=== PATIENT | female | born 1990 | race Caucasian/White ===

== ENCOUNTER 2023-02-03 13:33 | Outpatient (CLI) | payer OTHER, SELFPAY ==
--- NOTE | 2023-02-03 13:30 | CRLHL7_ITS ---
For Patients: As a result of the Century Cures Act, medical imaging exams and procedure reports are released immediately into your electronic medical record. You may view this report before your referring provider. If you have questions, please contact your health care provider. Indication: Erythema, edema and tenderness behind the right ear. Technique: CT of the temporal bones performed without IV contrast. Comparison: None relevant available at this institution. Findings: RIGHT: The external auditory canal is patent. The tympanic membrane is not thickened. The mesotympanum is well aerated. The scutum is sharp. Ossicles are intact without evidence of erosion. The epitympanum and mastoid air cells appear clear. The inner ear structures including the cochlea, semicircular canals, vestibule and vestibular aqueduct appear unremarkable. Osseous IAC is intact. The path of the facial nerve canal is preserved. LEFT: The external auditory canal is patent. The tympanic membrane is not thickened. The mesotympanum is well aerated. The scutum is sharp. Ossicles are intact without evidence of erosion. The epitympanum and mastoid air cells appear clear. The inner ear structures including the cochlea, semicircular canals, vestibule and vestibular aqueduct appear unremarkable. Osseous IAC is intact. The path of the facial nerve canal is preserved. OTHER: The visualized portions of the brain, orbits and upper soft tissue neck are grossly negative. Impression: Unremarkable CT of the temporal bones. The mastoid air cells are clear. Please note that all CT scans at this facility use dose modulation, iterative reconstruction, and/or weight-based dosing when appropriate to reduce radiation dose to as low as reasonably achievable. Dictated by Jacob La MD @ 02/03/2023 2:48:59 PM (Electronically Signed)
== END 2023-02-03 13:34 | disposition home or self-care (01) ==
LOC: CT 13:34
PROVIDERS: PCP Family Medicine; Visit Provider Student in an Organized Health Care Education/Training Program
DX: H92.09 Otalgia, unspecified ear (principal)
CPT/HCPCS: 70480

== ENCOUNTER 2023-08-30 08:16 | Outpatient (CLI) | payer OTHER, SELFPAY | END 2023-08-30 08:17 | disposition home or self-care (01) | LOC: NFLDREF 08-31 19:00 | PROVIDERS: PCP Family Medicine; Referring Provider Family Medicine; Visit Provider Family Medicine | DX: Z13.1 Encounter for screening for diabetes mellitus (principal); Z13.6 Encounter for screening for cardiovascular disorders; Z13.220 Encounter for screening for lipoid disorders | CPT/HCPCS: 80061; 82947 ==

== ENCOUNTER 2024-04-02 15:38 | Outpatient (CLI) | payer OTHER, SELFPAY | END 2024-04-02 15:39 | disposition home or self-care (01) | LOC: NFLDREF 04-17 20:21 | PROVIDERS: PCP Family Medicine; Referring Provider Family Medicine; Visit Provider Family Medicine | DX: N39.0 Urinary tract infection, site not specified (principal); B96.20 Unspecified Escherichia coli [E. coli] as the cause of diseases classified elsewhere | CPT/HCPCS: 87086; 87186 ==

== ENCOUNTER 2024-10-09 08:42 | Day surgery (SDC) | payer OTHER, SELFPAY ==
[2024-10-09] VITALS (12 sets, daily range): BP systolic 88–120; BP diastolic 52–72; PULSE 51–87; RESP 14–16; TEMP 36.8–37.2; O2SAT 93–100; BMI 24.1
[2024-10-09 09:08] LABS: Ur HCG Qualitative* Negative (Negative)
[2024-10-09 09:17] LABS: Hemoglobin* 13.9 gm/dL (12.0-16.0)
[2024-10-09] MEDS: SODIUM CHLORIDE 0.9 % (FLUSH) 10 ML SYRINGE IVF (09:40)
--- NOTE | 2024-10-09 10:17 | P.PCN_ITS ---
Procedure Note Time Seen by Provider: Date Seen: 10/09/24 Date of procedure: 10/09/24 Will [facility] bill your pro fee for this procedure?: Yes Procedure Description: Preoperative diagnosis: 34-year-old 2 para 2 with undesired fertility. Postoperative diagnosis: Same. Procedure: 1. IUD removal. 2. Laparoscopic bilateral salpingectomy Anesthesia: General endotracheal, local Surgeon: Medina Reynoso MD Bookkeeping Service Sales Agent: Soha Hickey MD EBL: 5 mL Urine output: 450 mL clear urine IVF: 800 ml Specimen: Bilateral fallopian tubes to pathology. Findings: On exam under anesthesia: The uterus was anteverted, less than 10 week size, mobile, without masses or nodularity palpable. Adnexa were without mass or fullness bilaterally. The uterus sounded to 8 cm. On laparoscopy: The uterus, bilateral fallopian tubes and ovaries all appeared normal. Normal appearing appendix. Procedure: Kirsty was taken to the operating room where general anesthetic was found to be adequate. She was placed in the dorsal lithotomy position and an exam under anesthesia was performed with findings stated above. She was then prepped and draped in a normal sterile manner. A Brooke catheter was then placed. A bivalve speculum was then placed in the vaginal canal to visualize the cervix. The anterior lip of the cervix was grasped with an a long Allis clamp. The cervix was dilated to Hegar 6. Uterus was sounded to 8 cm. A [employer] uterine manipulator was then placed. Attention was then turned to performing the laparoscopic portion of the procedure. All incisions were injected with 0.5% Marcaine prior to incision. A vertical 5 mm infraumbilical, incision, was made and a 5 mm trocar placed under direct visualization with the laparoscope. The abdomen was then insufflated with carbon dioxide gas to a pressure of 15 mm of mercury. To bilateral lower quadrant trocars were then placed under direct visualization. Both were placed approximately 3-4 finger breaths medial to the ischial crests. The both trocars were 5 mm. A diagnostic laparoscopy was then performed with findings stated above. The left fallopian tube was grasped with a sliding grasper. The left fallopian tube was removed from the broad ligament using the Halo dissecting forceps starting at the fimbriated end of the tube. Sequential pedicles were then formed to the level of the cornua. The tube was then removed at the cornua and removed from the abdomen through 1 of the 5 mm pelvic ports. The right fallopian tube was removed in a similar manner. Excellent hemostasis was noted of all pedicles. The trocars were then removed under direct visualization. The CO2 gas was allowed to escape the infraumbilical port prior to its removal. All incisions were reapproximated using 4-0 Monocryl in a running subcuticular manner. Exofin skin adhesive was then applied and adhesive dressings applied over each incision. The uterine manipulator and Brooke catheter were removed. The patient tolerated this procedure well. Sponge, lap and instrument counts were correct x2 at the end of the procedure and the patient was taken to the recovery area in stable condition.
[2024-10-09] MEDS: LACTATED RINGERS 1000 ML 1,000 ML 100 ML IV (10:21)
[2024-10-09] MEDS: BUPIVACAINE 0.5% 30 ML INJECTION (10:57)
--- NOTE | 2024-10-09 11:34 | W.ANESCHARGE ---
Anesthesia Charges Start Date/Time Anesthesia Start Date: 10/09/24 Anesthesia Start Time: 10:33 Stop Date/Time Anesthesia Stop Date: 10/09/24 Anesthesia Stop Time: 11:31
[2024-10-09] MEDS: fentaNYL 100 MCG/2 ML inj 50 MCG IVP (11:49)
== END 2024-10-09 13:08 | disposition home or self-care (01) ==
PROVIDERS: PCP Family Medicine; Visit Provider Obstetrics & Gynecology
PROC: (CPT 58661; principal; 2024-10-09 10:00)
DX: Z30.2 Encounter for sterilization (principal)
CPT/HCPCS: 58661; 58301; 00840; 36415; 81025; 85018; 86850; 86900; 86901; 88302; A4344; J0330; J0665; J1100; J1630; J1885; J2250; J2371; J2405; J2704; J3010; J7120